=== PATIENT | female | born 2005 | race Caucasian/White ===

== ENCOUNTER 2024-01-03 06:17 | Emergency (ER) | payer BC ==
[~2024-01-03] VITALS: Ht 154.9 cm; Wt 54.4 kg
[2024-01-03] MEDS ORDERED: Amoxicillin 875 MG Tab PO ONE (06:50)
[2024-01-03] MEDS ORDERED: Neomycin/Polymyxin/Hydrocort Otic 10 ml LEFTEAR ONE (06:50)
[2024-01-03] MEDS ORDERED: AMOX875 PO (06:51)
== END 2024-01-03 07:23 | disposition home or self-care (01) ==
LOC: ER 06:17
DX: H60.92 Unspecified otitis externa, left ear (principal); H66.91 Otitis media, unspecified, right ear; J45.909 Unspecified asthma, uncomplicated
CPT/HCPCS: 99282; A9270

== ENCOUNTER 2024-02-09 11:21 | Emergency (ER) | payer BC ==
[~2024-02-09] VITALS: Ht 154.9 cm; Wt 62.1 kg
[~2024-02-09 11:21] MED LIST: AMOX875 PO
== END 2024-02-09 12:00 | disposition home or self-care (01) ==
LOC: ER 11:21
DX: H60.93 Unspecified otitis externa, bilateral (principal); J45.909 Unspecified asthma, uncomplicated
CPT/HCPCS: 99282

== ENCOUNTER → 2024-07-23 | Outpatient (CLI) | payer SELFPAY | END | disposition home or self-care (01) | LOC: LAB SHORT 10:10 → LAB 10:10 | DX: R30.0 Dysuria (principal) | CPT/HCPCS: 87086 ==